=== PATIENT | male | born 1950 | race Caucasian/White ===

== ENCOUNTER 2022-05-31 17:03 | Observation (INO) ==
[2022-05-31 19:50] LABS: Basophils % 0.7 %; Eosinophils # 0.1 K/mcL (0.0-0.6); Eosinophils % 1.8 %; Hematocrit 37.5 % (37.5-50.1); Hemoglobin 12.7 g/dL (12.9-16.9); Immature Granulocytes % 0.5 % (0-4); Lymphocytes # 2.4 K/mcL (0.6-4.6); Lymphocytes % 40.5 %; Mean Corpuscular HGB Conc 33.9 g/dL (31.6-35.5); Mean Corpuscular Hemoglobin 31.1 pg (28.0-33.3); Mean Corpuscular Volume 91.7 fL (83.0-100.0); Mean Platelet Volume 10.8 fL (9.4-12.4); Monocytes # 0.4 K/mcL (0.0-1.3); Monocytes % 6.7 %; Platelet Count 218 K/mcL (140-400); Red Blood Count 4.09 M/mcL (4.19-5.50); Segmented Neutrophils % 49.8 %
[2022-05-31 20:00] LABS: INR 1.1; Prothrombin Time 11.9 Seconds (9.4-12.1)
[2022-05-31 20:03] LABS: Activated Partial Thrombo Time 32.7 Seconds (26.0-36.0)
[2022-05-31 20:07] LABS: Albumin 4.1 g/dL (3.5-5.7); Bilirubin,Total 2.6 mg/dL (0.3-1.0); Calcium 9.5 mg/dL (8.6-10.3); Globulin 4.1 g/dL (2.4-3.5); Potassium 3.3 mEq/L (3.5-5.1); Total Protein 8.2 g/dL (6.4-8.9)
[2022-05-31] MEDS ORDERED: Morphine Sulfate 2 MG/ML SYRINGE IVP ONE (20:59)
[2022-05-31] MEDS ORDERED: Acetaminophen 325 MG TABLET PO PRN (21:10)
[2022-05-31] MEDS ORDERED: Naloxone 0.4 MG/ML INJ IVP PRN (21:10)
[2022-05-31] MEDS ORDERED: Ondansetron 4 MG/2 ML VIAL IVP PRN (21:10)
[2022-05-31] MEDS ORDERED: Melatonin 3 MG TABLET PO PRN (21:10)
[2022-05-31] MEDS ORDERED: *HR* LORazepam 1 MG TABLET PO PRN ×2 (22:16)
[2022-05-31] MEDS ORDERED: *HR* LORazepam 2 MG/ML VIAL IVP PRN (22:16)
[2022-05-31] MEDS: 0.9 % Sodium Chloride 1,000 ML IVC SCH (23:10)
[2022-06-01 02:52] LABS: Basophils % 0.5 %; Eosinophils # 0.1 K/mcL (0.0-0.6); Eosinophils % 2.1 %; Hemoglobin 12.4 g/dL (12.9-16.9); Immature Granulocytes % 0.3 % (0-4); Lymphocytes # 2.4 K/mcL (0.6-4.6); Lymphocytes % 38.8 %; Mean Corpuscular HGB Conc 34.4 g/dL (31.6-35.5); Mean Corpuscular Hemoglobin 31.2 pg (28.0-33.3); Mean Corpuscular Volume 90.5 fL (83.0-100.0); Mean Platelet Volume 11.4 fL (9.4-12.4); Monocytes # 0.6 K/mcL (0.0-1.3); Monocytes % 9.4 %; Platelet Count 179 K/mcL (140-400); Red Blood Count 3.98 M/mcL (4.19-5.50); Segmented Neutrophils % 48.9 %; White Blood Count 6.2 K/mcL (4.3-11.1)
[2022-06-01 02:56] LABS: Calcium 9.3 mg/dL (8.6-10.3); Chol/HDL Ratio 2.2 (0-4.9); Magnesium 1.5 mg/dL (1.6-2.6)
[2022-06-01] MEDS ORDERED: Folic Acid 1 MG TABLET PO SCH (09:00)
[2022-06-01] MEDS: Thiamine (B-1) 100 MG TABLET PO SCH (09:08)
[2022-06-01] MEDS ORDERED: *HR* FentaNYL (PF) 100 MCG/2 ML VIAL ONE (09:19)
[2022-06-01] MEDS ORDERED: *HR* Propofol 200 MG/20 ML VIAL IVP ONE (09:19)
[2022-06-01] MEDS ORDERED: Lidocaine -MPF 2% 2 ML VIAL ONE (09:36)
[2022-06-01] MEDS ORDERED: *HR* Rocuronium Bromide 50 MG/5 ML VIAL ONE (09:36)
[2022-06-01] MEDS ORDERED: Lidocaine HCL 4 ML Topical Solution (Laryng-O-Jet Kit Sterile Pak) TP ONE (09:36)
[2022-06-01] MEDS ORDERED: Ondansetron 4 MG/2 ML VIAL ONE (09:36)
[2022-06-01] MEDS ORDERED: *HR* Succinylcholine 200 MG/10 ML VIAL IVP ONE (09:36)
[2022-06-01] MEDS ORDERED: Indomethacin 50 MG SUPP.RECT RC ONE (10:26)
[2022-06-01] MEDS ORDERED: hydroCHLOROthiazide 25 MG TABLET PO PRN (18:26)
[2022-06-01 20:19] VITALS: O2SAT 98
[2022-06-01] MEDS: 0.9 % Sodium Chloride 1,000 ML IVC SCH (23:37)
[2022-06-02 03:46] LABS: Basophils % 0.1 %; Eosinophils % 0.1 %; Hematocrit 35.9 % (37.5-50.1); Hemoglobin 12.4 g/dL (12.9-16.9); Immature Granulocytes % 0.2 % (0-4); Lymphocytes # 1.3 K/mcL (0.6-4.6); Lymphocytes % 16.5 %; Mean Corpuscular HGB Conc 34.5 g/dL (31.6-35.5); Mean Corpuscular Hemoglobin 31.1 pg (28.0-33.3); Mean Platelet Volume 11.8 fL (9.4-12.4); Monocytes # 0.5 K/mcL (0.0-1.3); Monocytes % 6.6 %; Neutrophils # 6.2 K/mcL (1.6-8.9); Platelet Count 191 K/mcL (140-400); Red Blood Count 3.99 M/mcL (4.19-5.50); Red Cell Distribution Width 11.9 % (11.5-14.5); Segmented Neutrophils % 76.5 %; White Blood Count 8.1 K/mcL (4.3-11.1)
[2022-06-02 04:02] LABS: Alanine Aminotransferase 46 Units/L (7-52); Albumin 3.5 g/dL (3.5-5.7); Albumin/Globulin Ratio 0.9 (1.1-2.2); Alkaline Phosphatase 530 Units/L (34-104); Aspartate Amino Transferase 61 Units/L (13-39); BUN/Creatinine Ratio 11 (6-26); Bilirubin,Total 2.1 mg/dL (0.3-1.0); Blood Urea Nitrogen 9 mg/dL (8-23); Calcium 9.2 mg/dL (8.6-10.3); Carbon Dioxide 21 mEq/L (23-29); Chloride 100 mEq/L (98-107); Globulin 3.7 g/dL (2.4-3.5); Glucose 106 mg/dL (70-105); Osmolality,Calculated 269 (280-300); Potassium 3.9 mEq/L (3.5-5.1); Sodium 130 mEq/L (136-145); Total Protein 7.2 g/dL (6.4-8.9)
[2022-06-02] MEDS ORDERED: Folic Acid 1 MG TABLET PO SCH (09:00)
[2022-06-02] MEDS ORDERED: Cyanocobalamin (B-12) 1,000 MCG TABLET PO SCH (09:00)
[2022-06-02] MEDS ORDERED: amLODIPine 5 MG TABLET PO SCH (09:00)
[2022-06-02] MEDS ORDERED: FLUoxetine 20 MG CAPSULE PO SCH (09:00)
[2022-06-02] MEDS: Thiamine (B-1) 100 MG TABLET PO SCH (09:06)
[2022-06-02 10:46] VITALS: BP 150/83; PULSE 78; TEMP 98.2
== END 2022-06-02 14:45 | disposition home or self-care (01) ==
LOC: EMEROOARM 17:03 → 3ANU 17:03 → SUATTDRO 21:52 → 3ANU 22:26
PROVIDERS: ADMIT Internal Medicine; ATTEND Nurse Practitioner